=== PATIENT | male | born 1975 | race Caucasian/White ===

== ENCOUNTER 2017-05-01 05:46 | Emergency (ER) | payer MEDICAID ==
[2017-05-01 05:46] VITALS: BMI 29.0
[2017-05-01 05:56] VITALS: TEMP 98.4
--- NOTE | 2017-05-01 06:30 | C.PDOC ---
History Of Present Illness The patient, a 41 y/o male, presents to the ED for evaluation of left ankle pain which began yesterday. Patient states he accidentally twisted his left ankle as he was stepping out of his truck. He states he was able to bear weight for the rest of the day. Patient woke up this morning with worsening symptoms, unable to bear weight to the area, and presents to the ED for further evaluation. Patient denies any other injuries and extremity numbness/weakness. Time Seen by Provider: 05/01/17 05:57 Chief Complaint (Nursing): Lower Extremity Problem/Injury History Per: Patient History/Exam Limitations: no limitations Onset/Duration Of Symptoms: Hrs Current Symptoms Are (Timing): Still Present Additional History Per: Patient - Ankle/Foot Description Of Injury: Twisted Past Medical History Reviewed: Historical Data, Nursing Documentation, Vital Signs Vital Signs: Last Vital Signs Temp 98.4 F 05/01/17 05:53 Pulse 72 05/01/17 05:53 Resp 18 05/01/17 05:53 BP 145/89 05/01/17 05:53 Pulse Ox 98 05/01/17 06:42 - Medical History PMH: No Chronic Diseases Surgical History: Cholecystectomy Family History: States: Unknown Family Hx - Social History Hx Tobacco Use: No Hx Alcohol Use: Yes Hx Substance Use: No - Immunization History Hx Tetanus Toxoid Vaccination: No Hx Influenza Vaccination: Yes Hx Pneumococcal Vaccination: No Review Of Systems Musculoskeletal: Positive for: Other (+left ankle pain ) Neurological: Negative for: Weakness, Numbness Physical Exam - Physical Exam Appears: Non-toxic, No Acute Distress Skin: Normal Color, Warm, Dry Head: Atraumatic Eye(s): bilateral: Normal Inspection Oral Mucosa: Moist Neck: Supple Extremity: Normal ROM, Tenderness (to medial aspect of left malleolus ), Capillary Refill (less than 2 seconds ), No Deformity, Swelling (mild to medial aspect of left malleolus ) Pulses: Left Dorsalis Pedis: Normal Neurological/Psych: Normal Speech, Normal Cognition, Normal Motor, Normal Sensation Gait: Steady ED Course And Treatment O2 Sat by Pulse Oximetry: 98 (on RA) Pulse Ox Interpretation: Normal Progress Note: Left ankle XR ordered; review shows no evidence of fracture or dislocations. Patient received Motrin PO. TINY wrap applied to affected area by CP and checked by me. On reassessment, patient is resting comfortably, showing no signs of distress, and reports an improvement in his symptoms. Patient is stable for discharge and is advised to follow up with his PMD within 1-2 days for further evaluation. 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 - Scribe Statement The provider has reviewed the documentation as recorded by the Scribe (Nilam Foster) All medical record entries made by the Scribe were at my direction and personally dictated by me. I have reviewed the chart and agree that the record accurately reflects my personal performance of the history, physical exam, medical decision making, and the department course for this patient. I have also personally directed, reviewed, and agree with the discharge instructions and disposition.
[2017-05-01 06:52] VITALS: BP 130/80; PULSE 80; RESP 14; O2SAT 99
--- NOTE | 2017-05-01 08:18 | RAD ---
PROCEDURE: Left Ankle Radiographs. HISTORY: pain, swelling, twisting injury COMPARISON: None FINDINGS: BONES: No fracture. A 4 mm rounded markedly hyperdensity projects over the calcaneus -almost a metallic like. JOINTS: Minimal posterior tibiotalar osteoarthritis. Ankle mortise maintained. Talar dome intact SOFT TISSUES: Normal. OTHER FINDINGS: None. IMPRESSION: No fracture or subluxation/dislocation appear. 4 mm rounded markedly hyperdensity projects over the calcaneus -almost a metallic like. Correlate clinically
== END 2017-05-01 06:52 | disposition home or self-care (01) ==
LOC: C.ER 05:46 → SUPCPDRO 05:46 → C.ER 06:52
DX: S93.402A Sprain of unspecified ligament of left ankle, initial encounter (principal); X50.1XXA Overexertion from prolonged static or awkward postures, initial encounter; Y92.410 Unspecified street and highway as the place of occurrence of the external cause